=== PATIENT | male | born 1960 | race American Indian/Alaskan Native ===

== ENCOUNTER 2016-12-19 15:16 | Emergency (ER) | payer MEDICARE ==
[2016-12-19] MEDS ORDERED: NORCO 5/325 PO ONE (19:37)
--- NOTE | 2016-12-19 19:37 | Emergency Department Report ---
HPI - General Chief Complaint: Back Pain/Injury Time Seen by Provider: 12/19/16 19:25 - HPI HPI: This is a 55-year-old male with a history of leukemia and chronic back pain who presents to ED stating he twisted his back earlier today. Patient states he is lower back pain is worsened since he twisted his back earlier today. Patient states he has not appointment with is primary care physician on January 02. Patient states he has chronic pain management clinic who sees him and can be seen until December. Patient states pain localized to the lower back region, nonradiating, patient denies recent injury or trauma to his back He denies fevers/chills/nausea/vomiting but no other problems ED Past Medical Hx - Past Medical History Hx Hypertension: Yes Additional medical history: Leukemia AML. Chronic back pain. Elevated Cholesterol - Surgical History Past Surgical History?: No - Social History Smoking Status: Current Some Day Smoker Substance Use Type: None - Medications Home Medications: Home Medications Medication Instructions Recorded Confirmed Last Taken Type Gabapentin [Neurontin] 300 mg PO DAILY #15 cap 12/19/16 Unknown Rx HYDROcodone/APAP 5-325 [[place] 1 each PO Q6H #10 tablet 12/19/16 Unknown Rx 5-325 mg TAB] ED Review of Systems ROS: Stated complaint: CHRONIC BACK PAIN Other details as noted in HPI Constitutional: denies: chills, fever Eyes: denies: eye pain, eye discharge, vision change ENT: denies: ear pain, throat pain, dental pain, hearing loss, congestion Respiratory: denies: cough, shortness of breath, wheezing Cardiovascular: denies: chest pain, palpitations Endocrine: no symptoms reported Gastrointestinal: denies: abdominal pain, nausea, vomiting, diarrhea Genitourinary: denies: urgency, dysuria Musculoskeletal: back pain. denies: joint swelling, arthralgia Skin: denies: rash, lesions Neurological: denies: headache, weakness, numbness, paresthesias, confusion Psychiatric: denies: anxiety, depression Hematological/Lymphatic: denies: easy bleeding, easy bruising Physical Exam - Physical Exam Vital Signs: Vital Signs 12/19/16 15:42 Temperature 99.1 F Pulse Rate 89 Respiratory 20 Rate Blood Pressure 120/88 O2 Sat by Pulse 98 Oximetry Physical Exam: GENERAL: Alert and oriented x3, no apparent distress, Normal Gait, atraumatic. HEAD: Head is normocephalic and a-traumatic. LUNGS: Symetrical with respiration, No wheezing, no rales or crackles, CTAB. HEART: S1, S2 present, regular rate and rhythm without murmur, no rubs, no gallops. Non tender to palpation ABDOMEN: No organomegaly was noted,Positive bowel sounds, soft, and non- distended. . Nontender to palpation on all Quadrants, NO CVA tenderness. charge. EXTREMITIES/MUSCULOSKELETAL: No cyanosis, clubbing, rash, lesions or edema. Full ROM bilaterally. UE/LE Pulses 2+ bilaterally. LE and UE 5+ strength bilaterally, straight leg raise positive right side. No spinal tenderness. Tenderness to the lower bilateral latissimus dorsi muscles. NEUROLOGIC: The patient is cooperative with no focal neurologic deficits. Cranial nerves II through XII are grossly intact. SKIN: Warm and dry, No lesions, No ulceration or induration present. ED Course Vital Signs 12/19/16 15:42 Temperature 99.1 F Pulse Rate 89 Respiratory 20 Rate Blood Pressure 120/88 O2 Sat by Pulse 98 Oximetry ED Medical Decision Making - Medical Decision Making 55-year-old male presents to chronic back lumbar red with each ED course: Patient received 2 [place] tablets. Discussed the patient was sent home on pain medication for couple of days and willingness to follow up with his primary care physician. Discussed proper rest and heat application 3 times a day. Critical care attestation.: If time is entered above; I have spent that time in minutes in the direct care of this critically ill patient, excluding procedure time. ED Disposition Clinical Impression: Lumbar radiculopathy Disposition: - TO HOME OR SELFCARE Is pt being admited?: No Does the pt Need Aspirin: No Condition: Stable Instructions: Lumbar Radiculopathy (ED), Trigger Point Pain (ED), Degenerative Disc Disease (ED) Prescriptions: Gabapentin [Neurontin] 300 mg PO DAILY #15 cap HYDROcodone/APAP 5-325 [[place] 5-325 mg TAB] 1 each PO Q6H #10 tablet Referrals: SNEHAL TAPIA MD [Primary Care Provider] - 3-5 Days [facility] [Outside] - 3-5 Days MARILYN SORIANO MD [Staff Physician] - 3-5 Days Forms: Accompanied Note, Work/School Release Form(ED) Time of Disposition: 19:45
[2016-12-19 20:06] VITALS: BP 122/78
== END 2016-12-19 20:06 | disposition home or self-care (01) ==
LOC: ED 15:16
DX: M54.16 Radiculopathy, lumbar region (principal); I10 Essential (primary) hypertension; G89.29 Other chronic pain; E78.00 Pure hypercholesterolemia, unspecified; Z72.0 Tobacco use
CPT/HCPCS: 99282

== ENCOUNTER 2017-12-01 11:04 | Emergency (ER) | payer MEDICARE ==
[2017-12-01 11:37] VITALS: BP 141/99
--- NOTE | 2017-12-01 14:01 | Emergency Department Report ---
Blank Doc - Documentation Documentation: Patient is a 56-year-old male who has leukemia and is in between oncologist who states for the past 3 days noticed some dark colored stools and believes it may be some blood in the stool. Patient states he's had about a 5 pound weight loss. Patient states it is no chest pain shortness of breath nausea vomiting or abdominal pain. Hemoccult was positive per my exam before labs be taken patient be reassessed
[2017-12-01 14:42] LABS: Basophils # (Auto) 0.1 K/mm3 (0.0-0.1); Basophils % (Auto) 1.3 % (0.0-1.8); Eosinophils # (Auto) 0.1 K/mm3 (0.0-0.4); Eosinophils % (Auto) 2.9 % (0.0-4.3); Hematocrit 45.5 % (35.5-45.6); Hemoglobin 14.8 gm/dl (11.8-15.2); Lymphocytes # (Auto) 1.7 K/mm3 (1.2-5.4); Lymphocytes % (Auto) 37.8 % (13.4-35.0); Mean Corpuscular HGB Conc 33 % (32-34); Mean Corpuscular Hemoglobin 29 pg (28-32); Mean Corpuscular Volume 89 fl (84-94); Monocytes # (Auto) 0.5 K/mm3 (0.0-0.8); Monocytes % (Auto) 10.5 % (0.0-7.3); Platelet Count 113 K/mm3 (140-440); Red Blood Count 5.11 M/mm3 (3.65-5.03); Red Cell Distribution Width 15.1 % (13.2-15.2)
[2017-12-01 14:53] LABS: BUN/Creatinine Ratio 10; Blood Urea Nitrogen 11 mg/dL (9-20); Hemolysis Index 5
--- NOTE | 2017-12-01 15:05 | Emergency Department Report ---
ED GI Bleed HPI - General Chief complaint: GI Bleed Stated complaint: BACK PAIN Time Seen by Provider: 12/01/17 13:28 Source: patient Mode of arrival: Ambulatory Limitations: No Limitations - History of Present Illness Initial comments: This is a 56-year-old -[place] male who presents with blood in stool that started 3 days ago. Patient reports a history of leukemia and chronic low back pain. Patient states stool started out light pink but increased over the next few days to dark. The patient reports being an between oncologists at this time. The last oncologist was in [place] he has recently moved to this area and his first appointment with oncologist in [place] will be December 15. States oncologist in the past is to follow-up as soon as he see blood in stool for further evaluation. He is also requesting management of chronic low back pain because he was released from pain management with 3 weeks ago. She has an appointment on December 15 for new pain management doctor. Patient denies nausea or vomiting, fever, chest pain, shortness of breath, dizziness, and abdominal pain. MD complaint: gross hematochezia -: days(s) (4 days) Radiation: none Severity scale (0 -10): 0 Quality: painless Improves with: none Worsens with: bowel movement Associated Symptoms: denies other symptoms Treatments Prior to Arrival: none - Related Data Previous Rx's Medication Instructions Recorded Last Taken Type Gabapentin [Neurontin] 300 mg PO DAILY #15 cap 12/19/16 Unknown Rx HYDROcodone/APAP 5-325 [[place] 1 each PO Q6H #10 tablet 12/19/16 Unknown Rx 5-325 mg TAB] Naproxen [Naprosyn] 500 mg PO BID PRN #15 tablet 12/01/17 Unknown Rx Allergies Allergy/AdvReac Type Severity Reaction Status Date / Time penicillin V potassium Allergy Hives Verified 12/19/16 15:53 [From Ghislaine Rosen] ED Review of Systems ROS: Stated complaint: BACK PAIN Other details as noted in HPI Constitutional: denies: chills, fever Respiratory: denies: cough, shortness of breath, wheezing Cardiovascular: denies: chest pain, palpitations Gastrointestinal: hematochezia. denies: abdominal pain, nausea, diarrhea, constipation, hematemesis, melena Neurological: denies: headache, weakness, paresthesias Psychiatric: denies: anxiety, depression ED Past Medical Hx - Past Medical History Hx Hypertension: Yes Additional medical history: Leukemia AML. Chronic back pain. Elevated Cholesterol - Surgical History Past Surgical History?: No - Social History Smoking Status: Current Every Day Smoker Substance Use Type: None - Medications Home Medications: Home Medications Medication Instructions Recorded Confirmed Last Taken Type Gabapentin [Neurontin] 300 mg PO DAILY #15 cap 12/19/16 Unknown Rx HYDROcodone/APAP 5-325 [[place] 1 each PO Q6H #10 tablet 12/19/16 Unknown Rx 5-325 mg TAB] Naproxen [Naprosyn] 500 mg PO BID PRN #15 tablet 12/01/17 Unknown Rx ED Physical Exam - General Limitations: No Limitations General appearance: alert, in no apparent distress - Respiratory Respiratory exam: Present: normal lung sounds bilaterally. Absent: respiratory distress - Cardiovascular Cardiovascular Exam: Present: regular rate, normal rhythm. Absent: systolic murmur, diastolic murmur, rubs, gallop - GI/Abdominal GI/Abdominal exam: Present: soft, normal bowel sounds. Absent: distended, tenderness, guarding, rebound, rigid, organomegaly, mass - Back Exam Back exam: Present: normal inspection, full ROM, paraspinal tenderness. Absent : rash noted - Neurological Exam Neurological exam: Present: alert, oriented X3 - Psychiatric Psychiatric exam: Present: normal affect, normal mood - Skin Skin exam: Present: warm, dry, intact, normal color. Absent: rash ED Course Vital Signs 12/01/17 11:31 Temperature 98.9 F Pulse Rate 105 H Respiratory 16 Rate Blood Pressure 141/99 O2 Sat by Pulse 97 Oximetry ED Medical Decision Making - Lab Data Result diagrams: 12/01/17 14:29 12/01/17 14:29 - Medical Decision Making This is a 56 y.o. male presents with bloody stool and chronic low back pain for 3 days. Patient was examined by me and Dr. Manjarrez. Vitals are normal and patient is in no acute distress. Positive guaiac on screening, obtain a BMP and CBC. H&H normal. 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 Patient informed of results. Start naproxen for pain and follow-up with pain management. He agrees with ER plan. Patient discharged home in stable condition. Follow up with PCP in 2-3 days Critical care attestation.: If time is entered above; I have spent that time in minutes in the direct care of this critically ill patient, excluding procedure time. ED Disposition Clinical Impression: Occult blood positive stool Chronic low back pain Qualifiers: Back pain laterality: bilateral Sciatica presence: without sciatica Qualified Code(s): M54.5 - Low back pain; G89.29 - Other chronic pain Disposition: TO HOME OR SELFCARE Is pt being admited?: No Does the pt Need Aspirin: No Condition: Stable Instructions: Chronic Back Pain (ED) Additional Instructions: Rest Use ice or heat on affected area for 20 minutes and off for 2 hours. Take pain medication as needed for pain. Follow-up with gastrointestinal and oncologist. Follow up with Primary Care Provider in 2-3 days. Prescriptions: Naproxen [Naprosyn] 500 mg PO BID PRN #15 tablet PRN Reason: Pain, Moderate (4-6) Referrals: [facility] [Outside] - 3-5 Days [facility] [Provider Group] - 3-5 Days Forms: Accompanied Note Time of Disposition: 15:14 Print Language: SWAZI
== END 2017-12-01 15:00 | disposition home or self-care (01) ==
LOC: ED 11:04
DX: G89.29 Other chronic pain (principal); M54.5 Low back pain; R19.5 Other fecal abnormalities; I10 Essential (primary) hypertension; E78.00 Pure hypercholesterolemia, unspecified; F17.200 Nicotine dependence, unspecified, uncomplicated; Z88.0 Allergy status to penicillin
CPT/HCPCS: 36415; 80048; 85025; 99283